=== PATIENT | female | born 1955 | race Caucasian/White ===

== ENCOUNTER 2021-02-12 09:34 | Emergency (ER) | payer MEDICARE, OTHER ==
[~2021-02-12] VITALS: Ht 157.5 cm; Wt 67.1 kg
[2021-02-12 12:49] LABS: ABSOLUTE BASOPHILS 0.1 thou/uL (0.0-0.2); ABSOLUTE EOSINOPHILS 0.2 thou/uL (0.0-0.7); ABSOLUTE LYMPHOCYTES 1.3 thou/uL (0.8-5.3); ABSOLUTE MONOCYTES 0.5 thou/uL (0.0-1.2); ABSOLUTE NEUTROPHILS 10.7 thou/uL (1.6-8.1); BASOPHILS 0.4 %; EOSINOPHILS 1.3 %; HEMOGLOBIN 14.7 gm/dL (12.0-15.0); MCH 29.3 pg (26.0-34.0); MCHC 33.4 g/dL (28.0-37.0); MCV 87.7 fL (80.0-100.0); MONOCYTES 3.8 %; MPV 7.4 fl. (7.2-11.1); NUCLEATED RBCS 0 /100WBC; PLATELET COUNT* 316 thou/uL (150-400); POLYS 84.5 %; RBC 5.02 mil/uL (4.20-5.00); RDW-CV 14.2 % (10.5-14.5); WBC 12.7 thou/uL (4.0-11.0)
[2021-02-12 13:00] LABS: CALCIUM 9.1 mg/dL (8.5-10.1); CREATININE 1.1 mg/dL (0.6-1.3)
[2021-02-12 13:07] LABS: ALBUMIN 4.1 g/dL (3.4-5.0); TOTAL BILIRUBIN 0.4 mg/dL (<0.1-1.0); TOTAL PROTEIN 8.2 g/dL (6.4-8.2)
[2021-02-12 13:37] LABS: URINE BILIRUBIN NEGATIVE (Negative); URINE BLOOD NEGATIVE (Negative); URINE COLOR YELLOW; URINE GLUCOSE-RANDOM NEGATIVE (Negative); URINE KETONES NEGATIVE (Negative); URINE LEUKOCYTES-REFLEX 2+ (Negative); URINE NITRITE-REFLEX NEGATIVE (Negative); URINE PROTEIN NEGATIVE (Negative); URINE SPECIFIC GRAVITY 1.015 (1.005-1.030); URINE UROBILINOGEN 0.2 E.U./dl (0.2-1.0)
[2021-02-12 13:38] LABS: URINE CLARITY HAZY
[2021-02-12 13:44] LABS: SQUAMOUS 0-3 Few /LPF (0-3)
[2021-02-12 13:45] LABS: BACTERIA-REFLEX None Seen /HPF (None Seen); CASTS None Seen /LPF (None Seen); CRYSTALS None Seen /LPF (None Seen); URINE RBC None Seen /HPF (0-2); URINE WBC-REFLEX 0-5 Rare /HPF (0-5)
--- NOTE | 2021-02-12 14:25 | EKG ---
[place] [address] ELECTROCARDIOGRAM REPORT Name: YAJAIRA MOLINA Room: [facility]#: [id number] Admission: 02/12/21 Attend Phys: Discharge: Date of : 53 Date of Service: 02/12/21 1031 Report #: [id number] THIS REPORT FOR: //name// [facility] ED Test Date: 2021-02-12 Test Time: 10:31:56 Pat Name: YAJAIRA MOLINA Department: Room: Gender: F Geophysics Scientist: : [id number] Requested By: Derek Tiwari Order Number: [id number] MD: Alonzo Becerra Measurements Intervals [place] Rate: 62 P: 46 ND: 189 QRS: 12 QRSD: 116 T: 71 QT: 456 QTc: 463 Interpretive Statements Sinus rhythm Incomplete right bundle branch block Low voltage, precordial leads No previous ECG available for comparison Electronically Signed On 02-12-2021 14:24:52 CDT by Alonzo Becerra [email or web address] <ELECTRONICALLY SIGNED> By: Alonzo Becerra MD, [facility] 02/12/21 1424 1031 1031 Alonzo Becerra MD, FAC /EPI
[2021-02-12] MEDS ORDERED: MECLIZINE HCL25 M1 PO (17:12)
[2021-02-12] MEDS ORDERED: MACROBID 100 M100 MG PO (17:18)
[2021-02-12 17:23] VITALS: BP 148/73
== END 2021-02-12 17:24 | disposition home or self-care (01) ==
LOC: M.ERS 09:34
PROVIDERS: Physician Assistant
DX: R42 Dizziness and giddiness (principal); N39.0 Urinary tract infection, site not specified; J45.909 Unspecified asthma, uncomplicated; Z90.711 Acquired absence of uterus with remaining cervical stump; Z88.1 Allergy status to other antibiotic agents; Z88.5 Allergy status to narcotic agent; Z98.890 Other specified postprocedural states